=== PATIENT | male | born 1995 | race Caucasian/White ===

== ENCOUNTER 2019-12-08 17:18 | Emergency (ER) | payer OTHER, SELFPAY ==
[2019-12-08 18:08] VITALS: BP 128/68; PULSE 97; RESP 14; TEMP 36.6; O2SAT 99; BMI 22.5
--- NOTE | 2019-12-08 18:35 | HMH.EDUTC ---
[facility] [place]position Clinical Impression: Bronchitis Sinusitis Qualifiers: Sinusitis location: unspecified location Chronicity: unspecified Qualified Code(s): J32.9 - Chronic sinusitis, unspecified Disposition: Home, Self-Care Condition on Discharge: Good Instructions: Sinusitis, Sinus Headache, DI for Sinusitis, DI for Acute Bronchitis Additional Instructions: ? Start antibiotic today. Be sure to complete entire prescription even if feeling better ? Monitor temp. Tylenol every 4 hours as needed and / or ibuprofen every 6 hours as needed ( As long as your primary care physician has told you that it ok to take both. For fever/aches/pains ER if no less than 101 despite Tylenol or Motrin ? Humidifier/vaporizer or hot steamy shower ? Inhaler every 4-6 hours as needed like we discussed. If unsure how to use it, ask pharmacist to demonstrate how. Should help open airways and improve cough, wheezing, and shortness of breath ? Mucinex during the day for your cough and cough suppressant only at night. Be sure to drink lots of water. Insurance may not cover a prescriptions for mucinex. Might be cheaper to get 400mg tablets and take 2 tablet in the morning, mid-day and evening with lots of water. *Start steroid today. Helps with inflammation therefore, cough and wheezing. Follow directions on the package. Reviewed side effects. Patient reports taking them before. Follow up IMMEDIATELY for new or worsening of symptoms OR no noticeable improvement over the next 48-72 hours. 911 immediately for any life threatening symptoms such as chest pain or difficulty breathing You was tested for today for COVID19 your test result should be back in the next 24 hours, you may call tomorrow after 9am to see if your test results are back and the result You was given a handout with instructions for Self Quarantine and Self isolation for while you wait on test results and what to do if they are positive Prescriptions: Albuterol Sulfate [Proventil-HFA 90mcg/puff Inh] 1 - 2 puffs IH Q4HP PRN #1 inh PRN Reason: Shortness Of Breath [facility] methylPREDNISolone [Medrol 4mg tab] 4 mg PO DIRECTED #21 tab Transmission Status: [facility] Azithromycin [Z-Juan Miguel 250mg Tab] 250 mg PO DIRECTED #6 tab Transmission Status: Pending to [facility] Referrals: Temo Momin MD [Primary Care Provider] - As needed Forms: Work/School Release Time of Disposition: 18:39 Medical Decision Making - Diego Inquiry Pt receiving controlled substance: No Diego was queried for this patient: No Vital Signs: 12/08/19 18:08 Temperature 98 F Temperature Source Oral Pulse Rate [Radial] 97 H Respiratory Rate 14 Blood Pressure [Right Arm] 128/68 Blood Pressure Mean [Right Arm] 88 Blood Pressure Source [Right Arm] Automatic Cuff Blood Pressure Position [Right Arm] Sitting 02 Sat by Pulse Oximetry 99 Oxygen Delivery Method Room Air [facility] [place] HPI - General Stated complaint: Cough Time Seen by Provider: 12/08/19 18:35 Mode of Arrival: Ambulatory Source of Information: Patient Limitations: No Limitations Description of Symptoms (Recalled from Triage Doc. by RN): head congestion, cough, sneezing HEENT Symptoms (Recalled from RN notes): Yes Resp Symptoms (Recalled from RN notes): Yes Skin Symptoms (Recalled from RN notes): No MS Symptoms (Recalled from RN notes): No Functional Status (Recalled from RN notes): wnl - History of Present Illness Provider Complaint: Patient states that he has been having sinus pain and pressure along with drainage and cough States that he is an every day smoker and feels like he has a sinus infection that is trying to move into his chest States that it has continued to get worse over the last week and today family made him come in and get checked State that he is unsure if he has been exposed to COVID or not - Related Data Previous Rx's Medication Instructions Recor
[2019-12-08 18:54] VITALS: BP 128/68; PULSE 97; RESP 14; TEMP 36.6; O2SAT 99
[2019-12-08 21:00] LABS: Adenovirus,PCR Not Detected (NotDetected); Bordetella Pertussis Not Detected (NotDetected); Chlamydophila Pneumoniae, PCR Not Detected (NotDetected); Coronavirus 19, PCR Not Detected (NotDetected); Coronavirus 229E Not Detected (NotDetected); Coronavirus NL63 Not Detected (NotDetected); Coronavirus OC43 Not Detected (NotDetected); Coronovirus HKU1,PCR Not Detected (NotDetected); Human Metapneumovirus Not Detected (NotDetected); Influenza A, PCR Not Detected (NotDetected); Influenza AH1, 2009 Not Detected (NotDetected); Influenza AH1, PCR Not Detected (NotDetected); Influenza AH3,PCR Not Detected (NotDetected); Influenza B, PCR Not Detected (NotDetected); Mycoplasma Pneumoniae, PCR Not Detected (NotDetected); Parainfluenza 1, PCR Not Detected (NotDetected); Parainfluenza 2, PCR Not Detected (NotDetected); Parainfluenza 3, PCR Not Detected (NotDetected); Parainfluenza 4, PCR Not Detected (NotDetected); Respiratory Syncytial Virus Not Detected (NotDetected)
[2019-12-09 11:50] LABS: Rhinovirus/Enterovirus Detected (NotDetected)
== END 2019-12-08 18:54 | disposition home or self-care (01) ==
PROVIDERS: Emergency Provider Nurse Practitioner; PCP Internal Medicine Adolescent Medicine
DX: Z20.828 Contact with and (suspected) exposure to other viral communicable diseases (principal); J32.9 Chronic sinusitis, unspecified; J20.9 Acute bronchitis, unspecified
CPT/HCPCS: 87581; 87633; 87798; 99201; U0003

== ENCOUNTER 2020-11-07 19:26 | Emergency (ER) | payer OTHER, SELFPAY ==
[2020-11-07 19:40] VITALS: BP 132/75; PULSE 80; RESP 18; TEMP 36.8; O2SAT 98; BMI 25.0
[2020-11-07 20:08] LABS: UTC Strep Screen (Rapid) Negative (Negative)
--- NOTE | 2020-11-07 20:14 | HMH.EDUTC ---
[facility] [place] Dis[place] Clinical Impression: Viral upper respiratory tract infection with cough Disposition: Home, Self-Care Condition on Discharge: Good Instructions: Cough, DI for Viral Upper Respiratory Infection -- Adult, DI for COVID-19 (Suspected or Confirmed ), Preventing the Spread of Coronavirus Discharge Instructions Additional Instructions: *Monitor Temp, Over the counter Motrin or Tylenol as directed/as needed Tylenol every 4 hours and Motrin every 6 hours (as long as your family doctor has told you that you can take it) for fever or pain. and straight to ER if unable to lower temp less than 101.0 after medication given *Warm salt water gargles may help to soothe the throat *Throat Lozenges *Warm fluids like tea with honey may help to soothe the throat *Sleep elevated *Humidifier/Vaporizer *Bromfed may cause drowsiness. Know how it effects you (your child) before driving, caring for small child, or sending your child to school. Not other antihistamines/allergy medications while taking bromfed Your throat swab was sent for culture. Those results are typically sent to your primary care. Be sure to follow up in 2-3 days with your family doctor/primary care physician if no improvement so they can review those result and treat if necessary. If you don?t have a primary care doctor, I recommend you get one but in the mean time, you will have to return to a walk in clinic Follow up IMMEDIATELY for new or worsening symptoms or no Noticeable improvement over the next 48-72 hours. 911 for difficulty breathing or swallowing You were tested for today for COVID19 your test result should be back in the next 24-48 hours, you was given handout on how to log into the [facility] Portal to check your results if you have trouble you may call the [facility] You was given a handout with instructions for Self Quarantine and Self isolation for while you wait on test results and what to do if they are positive If you are positive the Health Dept will be contacting you also Make sure to take your Vitamins Vit. C Vit D and Zinc if you can take them Prescriptions: Brompheniramine/Pseudoephed/Dm [Bromfed Dm Cough Syrup] 5 - 10 ml PO Q46H PRN #250 ml PRN Reason: Cough Transmission Status: Pending to [id number] Referrals: Temo Momin MD [Primary Care Provider] - Forms: Work/School Release Time of Disposition: 20:22 Medical Decision Making - Diego Inquiry Pt receiving controlled substance: No Diego was queried for this patient: No Vital Signs: 11/07/20 19:40 Temperature 98.3 F Temperature Source Oral Pulse Rate [Right Brachial] 80 Respiratory Rate 18 Blood Pressure [Right Arm] 132/75 Blood Pressure Mean [Right Arm] 94 Blood Pressure Source [Right Arm] Automatic Cuff Blood Pressure Position [Right Arm] Sitting 02 Sat by Pulse Oximetry 98 Oxygen Delivery Method Room Air - Lab Data Lab results reviewed: Yes: I reviewed the patient's lab results. Lab Results 11/07/20 19:56: Strep Scn Rapid Clinic Negative Orders (Tests/Meds): ORDERS Category Date Time Status Strep Screen Confirmation Routine Micro 11/07/20 19:56 Received [facility] [place] HPI - General Stated complaint: sore throat,cough,runny nose Time Seen by Provider: 11/07/20 20:15 Mode of Arrival: Ambulatory Source of Information: Patient Limitations: No Limitations Description of Symptoms (Recalled from Triage Doc. by RN): PATIENT C/O COUGH, RUNNY NOSE AND SORE THROAT SINCE SATURDAY HEENT Symptoms (Recalled from RN notes): Yes Resp Symptoms (Recalled from RN notes): Yes Skin Symptoms (Recalled from RN notes): No MS Symptoms (Recalled from RN notes): No Functional Status (Recalled from RN notes): WNL - History of Present Illness Provider Complaint: Patient states that he was recently around some family members that has had RSV and Rhinovirus States that he has been having cough, runny nose and sore throat since the weekend that has continued to get worse Stat
[2020-11-07 20:41] VITALS: BP 132/75; PULSE 80; RESP 18; TEMP 36.8; O2SAT 98
[2020-11-07 20:42] LABS: Adenovirus,PCR Not Detected (NotDetected); Bordetella Pertussis Not Detected (NotDetected); Chlamydophila Pneumoniae, PCR Not Detected (NotDetected); Coronavirus 19, PCR Not Detected (NotDetected); Coronavirus 229E Not Detected (NotDetected); Coronavirus NL63 Not Detected (NotDetected); Coronavirus OC43 Not Detected (NotDetected); Coronovirus HKU1,PCR Not Detected (NotDetected); Human Metapneumovirus Not Detected (NotDetected); Influenza A, PCR Not Detected (NotDetected); Influenza AH1, 2009 Not Detected (NotDetected); Influenza AH1, PCR Not Detected (NotDetected); Influenza AH3,PCR Not Detected (NotDetected); Influenza B, PCR Not Detected (NotDetected); Mycoplasma Pneumoniae, PCR Not Detected (NotDetected); Parainfluenza 1, PCR Not Detected (NotDetected); Parainfluenza 2, PCR Not Detected (NotDetected); Parainfluenza 3, PCR Not Detected (NotDetected); Parainfluenza 4, PCR Not Detected (NotDetected); Rhinovirus/Enterovirus Not Detected (NotDetected)
[2020-11-07 21:59] LABS: Respiratory Syncytial Virus Detected (NotDetected)
== END 2020-11-07 20:47 | disposition home or self-care (01) ==
PROVIDERS: Emergency Provider Nurse Practitioner; PCP Internal Medicine Adolescent Medicine
DX: J06.9 Acute upper respiratory infection, unspecified (principal)
CPT/HCPCS: 87581; 87632; 87798; 87880; 99203; C9803; G0463; U0003; U0005

== ENCOUNTER → 2021-02-24 13:56 | Outpatient (CLI) | payer OTHER, SELFPAY | PROVIDERS: PCP Internal Medicine Adolescent Medicine; Visit Provider Nurse Practitioner | DX: U07.1 COVID-19 (principal) | CPT/HCPCS: C9803; U0003; U0005 ==

== ENCOUNTER 2023-01-17 15:49 | Emergency (ER) | payer SELFPAY ==
[2023-01-17 15:52] VITALS: BP 128/60; PULSE 94; RESP 20; TEMP 36.7; O2SAT 100; BMI 27.5
--- NOTE | 2023-01-17 16:13 | HMH.EDGENADL ---
Discharge Plan Disposition Patient Disposition: Home, Self-Care Prescriptions Prescriptions: New doxycycline hyclate 100 mg capsule 100 mg PO BID 7 Days Qty: 14 0RF Referrals Follow up/Referrals: Temo Momin MD [Primary Care Provider] - See instructions Activity Restrictions/Add. Instructions Additional Instructions/Restrictions: Perform sitz bath's for the excised external thrombosed hemorrhoid as discussed. Additionally the small infection in your bellybutton region should improve with antibiotics alone please follow the primary care doctor if it is not improving with the prescribed treatment. Return to the emergency part with any concerns well. Clinical Impressions Clinical Impression: External hemorrhoid, thrombosed, Abdominal wall abscess Instructions Patient Instructions: DI for Skin Abscess Discharge ED Provider: Pato Sloan General Adult HPI General Chief complaint: Skin/Abscess/Foreign Body Stated complaint: naval red and painful, hemorrhoid Time Seen by Provider: 01/17/23 16:02 Mode of Arrival: Ambulatory Source of Information: Patient Limitations: No Limitations Description of Symptoms (Recalled from ER Triage Doc. by RN): pt has trouble straining and going to bathroom and he began noticing a hemorrhoid 5 days ago and a belly button wound that has been oozing as well History of Present Illness HPI narrative: Patient is a 27-year-old male presents today with multiple complaints. States he has a painful hemorrhoid also has a lesion on his bellybutton that he states has been oozing pus. He would like to be checked out today. [place] any other symptoms. Related Data Previous Rx's Medication Instructions Recorded doxycycline hyclate 100 mg capsule 100 mg PO BID 7 days #14 caps 01/17/23 Allergies Allergy/AdvReac Type Severity Reaction Status Date / Time No Known Allergies Allergy Verified 05/02/22 11:41 [facility] Disclaimer: The information contained in this section may have been updated after the patient was seen, as this information can be updated by other users. Social History (Updated 03/19/22 @ 13:04 by Hammad Turner MD) Smoking Status: Current every day smoker alcohol intake: never current occupational status: employed Travel in the last 8 weeks: None housing: house ROS Obtained: Yes All systems reviewed & no additional complaints except as documented Physical Exam General General appearance: alert Respiratory Respiratory exam: Present normal lung sounds bilaterally Cardiovascular Cardiovascular exam: Present regular rate Abdominal Exam Abdominal exam: Present other (Is a small erythematous lesion what looks like an ingrown hair with some surrounding erythema and purulent drainage superficially on his umbilicus) Rectal Exam Rectal exam: Present other (Thrombosed hemorrhoid noted on rectal exam) Neurological Exam Neurological exam: Present alert and oriented X3 Medical Decision Making Diego Inquiry Pt receiving controlled substance: No Vital Signs: 01/17/23 15:52 Temperature 98.0 F Temperature Source Oral Pulse Rate [Right Radial] 94 H Respiratory Rate 20 Blood Pressure [Right Arm] 128/60 Blood Pressure Mean [Right Arm] 82 02 Sat by Pulse Oximetry 100 Oxygen Delivery Method Room Air Orders (Tests/Meds): ED MEDICATIONS Discontinued Medications Generic Name Dose Route Start Last Admin Trade Name Freq PRN Reason Stop Dose Admin Lidocaine/Epinephrine 10 ml 01/17/23 16:16 01/17/23 16:19 Lidocaine 1% W/Epi 1:100,000 20ml Vial SQ 01/17/23 16:17 5 ml ONCE ONE Administration Medical Decision Narrative: 27-year-old male with 2 complaints today 1 is a infected ingrown hair that has purulent drainage will cover for staph. Will give him a prescription of doxycycline to home with. Secondly he has a thrombosed hemorrhoid he is in mild pain associate with this I gave him 2 options 1 to treat this conservatively second t
[2023-01-17 16:44] VITALS: BP 128/84; PULSE 85; RESP 18; TEMP 36.6; O2SAT 99
== END 2023-01-17 16:45 | disposition home or self-care (01) ==
PROVIDERS: Emergency Provider Student in an Organized Health Care Education/Training Program; PCP Internal Medicine Adolescent Medicine
DX: L02.211 Cutaneous abscess of abdominal wall (principal); K64.5 Perianal venous thrombosis; F17.200 Nicotine dependence, unspecified, uncomplicated
CPT/HCPCS: 46083; 99283